=== PATIENT | female | born 1940 | race Caucasian/White ===

== ENCOUNTER → 2019-11-11 16:50 | Outpatient (CLI) | payer MEDICARE, SELFPAY ==
--- NOTE | ~2019-11-11 | XR_ITS ---
XR shoulder RT min 2V 11/11/2019 17:46 Indication: Right shoulder pain for 10 years Procedure: 4 views of the right shoulder Comparison: No prior studies for comparison. Findings: There is a nondisplaced fracture of the scapula with adjacent sclerosis involving the acrom ion process. There is a possible nondisplaced distal clavicular fracture. There is moderate osteoarth ritis of the right shoulder with probable rotator cuff tear. There is diffuse bilateral airspace dise ase, likely edema. Impression: 1: Nondisplaced age-indeterminate right scapular fracture involving the acromion process. 2: Possible nondisplaced distal clavicular fracture. 3: Moderate osteoarthritis of the right shoulder with probable rotator cuff tear. 4: Diffuse bilateral airspace disease, likely edema. Reviewed, dictated and finalized at location A. [employer] SPECIALIST Impression: 1: Nondisplaced age-indeterminate right scapular fracture involving the acromio n process. 2: Possible nondisplaced distal clavicular fracture. 3: Moderate osteoarthritis of the right shoulder with probable rotator cuff te ar. 4: Diffuse bilateral airspace disease, likely edema.
== END ==
PROVIDERS: PCP Internal Medicine; Visit Provider Nurse Practitioner Family
DX: M19.011 Primary osteoarthritis, right shoulder (principal); S42.124A Nondisplaced fracture of acromial process, right shoulder, initial encounter for closed fracture; X58.XXXA Exposure to other specified factors, initial encounter
CPT/HCPCS: 73030

== ENCOUNTER → 2019-12-11 07:48 | Outpatient (CLI) | payer MEDICARE, SELFPAY ==
--- NOTE | ~2019-12-11 | US_ITS ---
EXAMINATION: US right upper quadrant EXAM DATE: 12/11/2019 08:49 INDICATION: Esophageal varices. TECHNIQUE: Multiple grayscale and Doppler images of the abdomen right upper quadrant were obtained (b y a technologist who performed the scan) and subsequently reviewed. Comparison is made to prior exami nation from 04/18/2015. FINDINGS: The pancreatic head and body are normal in appearance. The pancreatic tail is not visualized. The l iver has normal echogenicity and contour. There are no focal liver lesions identified. There is no evidence of intrahepatic biliary duct dilation. Portal venous flow was seen in the hepatopedal, nor mal direction and has normal Doppler waveform. No right-sided hydronephrosis. Common bile duct measures 6 mm, which is normal. The gallbladder wall is normal in thickness, with ex pected amount of distention. No sonographic evidence of pericholecystic fluid. There is no cholelit hiases. Technologist performing exam reports patient did not demonstrate sonographic Aden's sign. Please note that this sign is less reliable in patients who have received pain medication. IMPRESSION: 1. Unremarkable abdominal ultrasound exam. Reviewed, dictated and finalized at location B. NG TECH
== END ==
PROVIDERS: PCP Internal Medicine
DX: I85.10 Secondary esophageal varices without bleeding (principal)
CPT/HCPCS: 76705

== ENCOUNTER 2020-04-29 09:08 | Outpatient (CLI) | payer MEDICARE, SELFPAY ==
[2020-04-29 09:52] LABS: Basophils Percent Auto 0.7 % (0.2-1.2); Eosinophils Absolute Auto 0.2 K/mm3 (0-0.3); Hematocrit 32.5 % (37.0-47.0); Hemoglobin 10.2 g/dL (12.0-15.0); Immature Granulocyte Absolute 0.01 K/mm3 (0.00-0.031); Immature Granulocyte Percent A 0.2 % (0-0.5); Lymphocytes Absolute Auto 0.62 K/mm3 (0.9-3.2); Lymphocytes Percent Auto 14.8 % (18.3-44.2); Mean Corpuscular HGB Conc 31.4 g/dl (32-36); Mean Corpuscular Hemoglobin 30.3 pg (26-34); Mean Corpuscular Volume 96.4 fl (80-100); Mean Platelet Volume 9.9 fl (7.4-10.4); Monocytes Absolute Auto 0.4 K/mm3 (0.1-0.6); Neutrophils Absolute Auto 2.9 K/mm3 (1.3-6.7); Neutrophils Percent Auto 69.3 % (45.5-73.1); Platelet Count Result 153 k/mm3 (150-375); Red Blood Count 3.37 M/mm3 (4.2-5.4); Red Cell Distribution Width 13.8 % (11.5-14.5); White Blood Count 4.2 K/mm3 (4.5-10.0)
[2020-04-29 10:03] LABS: Hemoglobin A1C 5.8 % (<5.7)
[2020-04-29 10:04] LABS: Alanine Aminotransferase 18 U/L (4-35); Albumin Level 3.6 g/dL (3.5-5.1); Alkaline Phosphatase 60 U/L (38-126); Aspartate Amino Transferase 30 U/L (14-36); Bilirubin,Total 0.3 mg/dL (0.2-1.3); Blood Urea Nitrogen 15 mg/dL (7-17); Calcium 8.6 mg/dL (8.4-10.2); Carbon Dioxide 30 mmol/L (22-30); Chloride 103 mmol/L (98-107); Cholesterol 98 mg/dL (0-200); Estimated Glomerular Filt Rate > 60; Glucose 90 mg/dL (65-105); HDL Direct 31 mg/dL; Potassium 4.3 mmol/L (3.4-5.0); Sodium 140 mmol/L (137-145); Triglycerides 114 mg/dL (<150)
[2020-04-29 10:16] LABS: LDL Cholesterol Direct 45 mg/dL
[2020-04-29 10:45] LABS: Creatinine Urine 117.6 mg/dL
[2020-04-29 10:50] LABS: Microalbumin Urine Random 8.2 mg/L (0-16.7)
== END 2020-04-29 09:09 | disposition home or self-care (01) ==
LOC: ANHLAB 09:09
PROVIDERS: PCP Internal Medicine; Visit Provider Internal Medicine
DX: E11.9 Type 2 diabetes mellitus without complications (principal)
CPT/HCPCS: 36415; 80053; 80061; 82043; 83036; 85025

== ENCOUNTER 2020-06-01 12:49 | Outpatient (CLI) | payer MEDICARE, SELFPAY ==
--- NOTE | ~2020-06-01 | US_ITS ---
EXAMINATION: US carotid duplex BI EXAM DATE: 06/01/2020 13:48 INDICATION: Right eye retinal hemorrhage. TECHNIQUE: Grayscale, color and pulsed Doppler images of the cervical carotid arteries were obtained . The degree of vessel stenosis is placed in one of the following categories: normal, <50% stenosis, 50-69% stenosis, >=70% stenosis but less than near-occlusion, near-occlusion, or occlusion. Note that percent stenosis relative to normal distal artery lumen diameter is indirectly measured from velocit y measurements as described by Omero, et al. Radiology 2003; 229:340-346. There is no prior study fo r comparison. FINDINGS: RIGHT SIDE: Right common carotid artery peak systolic velocity (PSV in cm/s): 74 Right bulb/internal carotid artery peak systolic velocity (PSV in cm/s): 142 Right internal carotid artery end diastolic velocity (EDV in cm/s): 45 Right ICA/CCA peak systolic ratio: 1.9 Right external carotid artery peak systolic velocity (PSV in cm/s): 56 Right vertebral artery antegrade flow: yes There is moderate carotid bulb plaque. Velocity and Doppler waveforms in the common and internal carotid arteries is normal. LEFT SIDE: Left common carotid artery peak systolic velocity (PSV in cm/s): 54 Left bulb/internal carotid artery peak systolic velocity (PSV in cm/s): 81 Left internal carotid artery end diastolic velocity (EDV in cm/s): 21 Left ICA/CCA peak systolic ratio: 1.5 Left external carotid artery peak systolic velocity (PSV in cm/s): 72 Left vertebral artery antegrade flow: yes There is mild carotid bulb plaque. Velocity and Doppler waveforms in the common and internal carotid arteries is normal. IMPRESSION: 1. 50-69% stenosis right internal carotid artery. 2. Less than 50 percent stenosis in the left internal carotid artery. Reviewed, dictated and finalized at location B.
--- NOTE | ~2020-06-01 | DEXA_ITS ---
Bone Density Report Name: Virginie Sharma Age: 79 Sex: Female Ethnicity: White Date of : 1940 Indication: postmenopausal; height loss; prior fracture; Referring Provider: Levon Solorzano Study: Bone densitometry was performed. Exam Date: June 01, 2020 Accession number: [id number] There is hypertrophic degenerative change of the lumbar spine, which results in higher than expected spine bone mineral density measurements. These spine BMD and T score and Z score measurements are not reflective of the patient's true general bone mineral density. Bone Density: Region BMD T-score Z-score Classification AP Spine (L3, L4) 1.337 2.1 5.0 Normal Femoral Neck (Left) 0.545 -2.7 -0.4 Osteoporosis Total Hip (Left) 0.674 -2.2 -0.1 Osteopenia Total Hip Bilateral Avg 0.662 -2.3 -0.3 Osteopenia Femoral Neck (Right) 0.520 -3.0 -0.7 Osteoporosis Total Hip (Right) 0.648 -2.4 -0.4 Osteopenia World Health Organization criteria for BMD impression classify patients as: Normal (T-score at or above -1.0), Osteopenia (T-score between -1.0 and -2.5), or Osteoporosis (T-score at or below -2.5). 10-year Fracture Risk: FRAX not reported because: Some T-score for Spine Total or Hip Total or Femoral Neck at or below -2.5 Clinical Information Provided by Patient: Has had a low trauma fracture Patient maximum height was 62 Menopause Age: 50 Onset of menses at age 12 Number of children 2 Impression: The patient has established osteoporosis, based on the Right Femoral Neck T-score and the existence of a prior fracture. The patient has risk factors, including: previous fracture. There is hypertrophic degenerative change of the lumbar spine, which results in higher than expected spine bone mineral density measurements. These spine BMD and T score and Z score measurements are not reflective of the patient's true general bone mineral density. Discussion: HIGH RISK OF FRACTURE. BONE DENSITY IS UNDESIRABLY LOW AT ONE OR MORE SKELETAL SITES, CONSISTENT WITH POSTMENOPAUSAL OSTEOPOROSIS. This patient's lowest T-score, in a patient who has previously fractured, meets the World Health Organization's (WHO) criteria for severe osteoporosis. In untreated patients, the risk of osteoporotic fracture increases approximately two-fold for each 1.0 SD decrease in T-score. Low bone density is not the only risk factor for fracture; also consider factors such as patient's age, frailty or poor health, risk of falling, risk of injury, previous osteoporotic fracture, family history of osteoporosis, cigarette smoking, low body weight, etc. Not everyone with low bone mineral density has osteoporosis; osteomalacia and other metabolic bone disorders should also be considered. Patients who have osteoporosis should be evaluated for specific diseases and conditions (secondary causes) that m
== END 2020-06-01 12:50 | disposition home or self-care (01) ==
PROVIDERS: PCP Internal Medicine; Visit Provider Internal Medicine
DX: M81.0 Age-related osteoporosis without current pathological fracture (principal); H35.61 Retinal hemorrhage, right eye; I65.23 Occlusion and stenosis of bilateral carotid arteries; M85.89 Other specified disorders of bone density and structure, multiple sites
CPT/HCPCS: 77080; 93880

== ENCOUNTER 2020-06-08 10:06 | Outpatient (CLI) | payer MEDICARE, SELFPAY ==
--- NOTE | ~2020-06-08 | CT_ITS ---
EXAMINATION: CTA neck DATE: 06/08/2020 11:08 INDICATION: Right carotid stenosis. TECHNIQUE: Computed tomographic angiography (CTA) of the neck was performed with 100 mL Omnipaque-350 intravenous contrast. Automated exposure control and iterative reconstruction technique were employe d. The dose-length product was 447.84 mGy-cm. Maximum intensity projection 3D-reconstructions were cr eated by the technologist on a separate workstation. COMPARISON: Ultrasound 06/01/2020, chest CT 04/14/2010 FINDINGS: The visualized portions of the lung apices demonstrate severe chronic interstitial lung dis ease. There is chronic mild mediastinal lymphadenopathy, likely reactive. The vertebral arteries are codominant. There is plaque in the proximal internal carotid arteries. There is 47% stenosis of the p roximal right internal carotid artery relative to normal distal artery lumen diameter (NASCET criteri a). There is 0% stenosis of the proximal left internal carotid artery relative to normal distal arter y lumen diameter. There is severe cervical spondylosis. IMPRESSION: 1. 47% stenosis of the proximal right internal carotid artery relative to normal distal artery lumen diameter (NASCET criteria). 2. 0% stenosis of the proximal left internal carotid artery relative to normal distal artery lumen di ameter. 3. Severe chronic interstitial lung disease. Reviewed, dictated and finalized at location B. IMPRESSION: 1. 47% stenosis of the proximal right internal carotid artery relative to saji l distal artery lumen diameter (NASCET criteria). 2. 0% stenosis of the proximal left internal carotid artery relative to normal distal artery lumen diameter. 3. Severe chronic interstitial lung disease.
[2020-06-08 10:51] LABS: Estimated Glomerular Filt Rate > 60
== END 2020-06-08 10:07 | disposition home or self-care (01) ==
PROVIDERS: PCP Internal Medicine; Visit Provider Internal Medicine
DX: I65.21 Occlusion and stenosis of right carotid artery (principal); J84.9 Interstitial pulmonary disease, unspecified
CPT/HCPCS: 70498; Q9967

== ENCOUNTER → 2020-07-19 09:08 | Outpatient (CLI) | payer MEDICARE, SELFPAY ==
--- NOTE | ~2020-07-19 | XR_ITS ---
XR knee LT 2V DATE: 07/19/2020 09:48 INDICATION: Bilateral knee pain TECHNIQUE: AP and lateral views COMPARISON: None FINDINGS: Mild to moderate osteopenia. Small suprapatellar knee joint effusion. Mild enthesopathy of the superior pole of the quadriceps tendon insertion. There is mild particular spurring at the patellofemoral joint. There is moderate moderate loss of arturo nt space at the medial and lateral compartments. There is mild periarticular spurring of the lateral tibial plateau. There is subtle chondrocalcinosis. No fracture, dislocation, periosteal reaction or bone destruction. Femoral and popliteal artery calcification. IMPRESSION: Small knee joint effusion Moderate moderate osteopenia Tricompartment osteoarthritis Subtle chondrocalcinosis Reviewed, dictated and finalized at location A.
--- NOTE | ~2020-07-19 | XR_ITS ---
XR knee RT 2V DATE: 07/19/2020 09:48 INDICATION: Bilateral knee pain TECHNIQUE: AP and lateral views COMPARISON: None FINDINGS: There is mild suprapatellar knee joint effusion. There is very prominent hypertrophic degenerative spurring at the patellofemoral joint consistent wit h severe osteoarthritis. There is severe osteoarthritis with virtual obliteration of joint space at t he lateral compartment. There is mild degenerative spurring of the medial tibial plateau. There is valgus deformity at the knee. No fracture or dislocation, periosteal reaction or bone destruction is detected. Slight chondrocalcinosis. IMPRESSION: Tricompartment osteoarthritis, severe at the lateral and patellofemoral components Mild knee joint effusion Reviewed, dictated and finalized at location A. IMPRESSION: Tricompartment osteoarthritis, severe at the lateral and patellofem oral components Mild knee joint effusion
== END ==
PROVIDERS: PCP Internal Medicine; Visit Provider Nurse Practitioner Family
DX: M17.0 Bilateral primary osteoarthritis of knee (principal); M25.461 Effusion, right knee; M25.462 Effusion, left knee
CPT/HCPCS: 73560

== ENCOUNTER 2020-12-30 10:19 | Outpatient (CLI) | payer MEDICARE, SELFPAY ==
[2020-12-30 11:08] LABS: Basophils Percent Auto 0.3 % (0.2-1.2); Eosinophils Absolute Auto 0.1 K/mm3 (0-0.3); Eosinophils Percent Auto 2.3 % (0-4.4); Hematocrit 33.1 % (37.0-47.0); Hemoglobin 9.9 g/dL (12.0-15.0); Immature Granulocyte Absolute 0.01 K/mm3 (0.00-0.031); Immature Granulocyte Percent A 0.3 % (0-0.5); Lymphocytes Absolute Auto 0.21 K/mm3 (0.9-3.2); Mean Corpuscular HGB Conc 29.9 g/dl (32-36); Mean Corpuscular Hemoglobin 27.6 pg (26-34); Mean Corpuscular Volume 92.2 fl (80-100); Mean Platelet Volume 10.2 fl (7.4-10.4); Monocytes Absolute Auto 0.3 K/mm3 (0.1-0.6); Monocytes Percent Auto 7.4 % (2.6-8.5); Neutrophils Absolute Auto 2.9 K/mm3 (1.3-6.7); Neutrophils Percent Auto 83.7 % (45.5-73.1); Platelet Count Result 116 k/mm3 (150-375); Red Blood Count 3.59 M/mm3 (4.2-5.4); Red Cell Distribution Width 13.6 % (11.5-14.5); White Blood Count 3.5 K/mm3 (4.5-10.0)
[2020-12-30 11:20] LABS: Alanine Aminotransferase 12 U/L (4-35); Albumin Level 3.2 g/dL (3.5-5.1); Alkaline Phosphatase 90 U/L (38-126); Anion Gap 6 mmol/L (8-16); Aspartate Amino Transferase 24 U/L (14-36); Bilirubin,Total 0.4 mg/dL (0.2-1.3); Blood Urea Nitrogen 13 mg/dL (7-17); Calcium 7.7 mg/dL (8.4-10.2); Carbon Dioxide 32 mmol/L (22-30); Chloride 101 mmol/L (98-107); Estimated Glomerular Filt Rate > 60; Glucose 149 mg/dL (65-105); Potassium 4.1 mmol/L (3.4-5.0); Sodium 139 mmol/L (137-145)
[2020-12-30 11:33] LABS: Hemoglobin A1C 5.3 % (<5.7)
== END 2020-12-30 10:20 | disposition home or self-care (01) ==
PROVIDERS: PCP Internal Medicine; Visit Provider Internal Medicine
DX: R73.9 Hyperglycemia, unspecified (principal); I25.10 Atherosclerotic heart disease of native coronary artery without angina pectoris; Z13.228 Encounter for screening for other metabolic disorders; J84.9 Interstitial pulmonary disease, unspecified
CPT/HCPCS: 36415; 80053; 83036; 85025